=== PATIENT | male | born 1980 | race Hispanic/Latino ===

== ENCOUNTER 2022-02-17 17:51 | Emergency (ER) | payer OTHER, SELFPAY ==
[2022-02-17] MEDS ORDERED: Nicardipine/NS 25 MG/250 ML KIT IV ONE (18:36)
[2022-02-17] MEDS ORDERED: NA CHLORIDE 0.9% 1,000 ML ONE (18:36)
[2022-02-17 18:38] LABS: Absolute Lymphocytes (CBC) 2.8 K/uL (0.7-4.9); Hematocrit 43.7 % (39.6-49.0); Lymphocytes % 30.1 % (15.3-44.8); MPV 8.9 fL (7.6-11.3); RBC Red Blood Cell Count 5.28 M/uL (4.33-5.43)
[2022-02-17 18:41] LABS: Protime INR 1.04
--- NOTE | 2022-02-17 18:42 | RAD REPORT ---
EXAM DESCRIPTION: CT - Head Brain Wo Cont - 02/17/2022 6:20 pm CLINICAL HISTORY: SLURRED SPEECH Headache, drowsiness COMPARISON: No comparisons TECHNIQUE: All CT scans are performed using dose optimization technique as appropriate and may inclu de automated exposure control or mA/KV adjustment according to patient size. FINDINGS: 28 x 21 mm acute hemorrhage is present in the left thalamus. This is likely a hypertensive bleed.Small amount of blood is seen extending into the left frontal horn of lateral ventricle and th ird ventricle.No midline shift is seen. The paranasal sinuses and mastoids are clear. The calvarium is intact. IMPRESSION: 28 mm suspected hypertensive acute hemorrhage is present left thalamus. Small amount of hemorrhage is seen extending into the left lateral ventricle and third ventricle. The findings were discussed with Bala Mills on 02/17/2022 at 6:38 p.m. by telephone.
--- NOTE | 2022-02-17 18:50 | ER ---
Nurse's Notes [facility] Name: Kit Puente Age: 41 yrs Sex: Male : 1980 Arrival Date: 02/17/2022 Time: 17:52 Bed 17 Private MD: Diagnosis: Nontraumatic intracerebral hemorrhage, unspecified;Hypertensive heart disease without heart failure;Hyperglycemia, unspecified Presentation: 02/17 17:55 Chief complaint: Spouse and/or significant other states: "He was having a headache that jd3 started last night and got worse today. this morning he started having slurred speech ". Coronavirus screen: At this time, the client does not indicate any symptoms associated with coronavirus-19. Ebola Screen: No symptoms or risks identified at this time. Initial Sepsis Screen: Does the patient meet any 2 criteria? No. Patient's initial sepsis screen is negative. Does the patient have a suspected source of infection? No. Patient's initial sepsis screen is negative. Risk Assessment: Do you want to hurt yourself or someone else? Patient reports no desire to harm self or others. Onset of symptoms was February 16, 2022. 17:55 Method Of Arrival: Ambulatory jd3 17:55 Acuity: CATHERINE 2 jd3 17:59 Acuity: CATHERINE 2 ap3 19:13 Pre-hospital glucose is not applicable to this patient. ap3 19:56 An acute neurological deficit is present. bb Triage Assessment: 19:14 The onset of the patients symptoms was February 16, 2022 at 17:00. General: Appears in no ap3 apparent distress. Behavior is calm, cooperative. Stroke Activation: Symptom onset > 6 hours Physician: Stroke Attending; Name: ; Notified At: ; Arrived At: Physician: Chief Stroke Resident; Name: ; Notified At: ; Arrived At: Physician: Stroke Resident; Name: ; Notified At: ; Arrived At: Physician: ED Attending; Name: ; Notified At: ; Arrived At: Physician: ED Resident; Name: ; Notified At: ; Arrived At: Historical: - Allergies: 17:56 No Known Allergies; jd3 - Home Meds: 17:56 None [Active]; jd3 - PMHx: 17:56 None; jd3 - PSHx: 17:56 None; jd3 - Immunization history:: Adult Immunizations up to date, Client reports having NOT received the Covid vaccine. Flu vaccine is not up to date. - Social history:: Smoking status: Patient reports the use of cigarette tobacco products, denies chronic smoking, but will smoke occasionally. Screenin:13 Abuse screen: Denies threats or abuse. Nutritional screening: No deficits noted. ap3 Tuberculosis screening: No symptoms or risk factors identified. Assessment: 19:11 VAN Scoring: Arm Drift: Patients demonstrates NO arm weakness. Patient is VAN Negative. ap3 T-PA (Activase) Screening: Contraindications: Intracranial hemorrhage and its risk factor and suspicion of subarachnoid bleed: Yes. Pain: Denies pain. Neuro: Level of Consciousness is awake, alert, obeys commands, Oriented to person, place, time, situation, Speech is normal. Cardiovascular: Patient's skin is warm and dry. Respiratory: Airway is patent Respiratory effort is even, unlabored, Respiratory pattern is regular, symmetrical. 19:13 Patient has been NPO before screening. The patient is alert, and able to follow ap3 commands. The patient exhibits slurred or garbled speech. The patient is not exhibiting difficulty speaking. The patient does not exhibit difficulty understanding words. The patient is able to swallow own secretions with no drooling or need for suction. Patient tolerated one teaspoon of water. No drooling, immediate coughing, gurgling, or clearing of the throat was noted. The patient tolerated 90mL of water. No drooling, immediate coughing, gurgling, or clearing of the throat was noted. The patient passed the bedside swallow screening. Oral medications may be given as ordered. Contact Physician for further diet orders. Provider notified of bedside swallow screening results: Bala GUZMÁN. 19:15 General: Appears in no apparent distress. obese, Behavior is calm, cooperative. Pain: bb Denies pain. Neuro: Level of Consciousness is awake, alert, obeys commands, Oriented to person, place, time, situation. Cardiovascular: Capillary refill < 3 seconds Patient's skin is warm and dry. Rhythm is sinus tachycardia. Respiratory: Respiratory effort is even, unlabored, Respiratory pattern is regular. GI: No signs and/or symptoms were reported involving the gastrointestinal system. Derm: Skin is dry, Skin is normal, Skin temperature is warm. Musculoskeletal: Circulation, motion, and sensation intact. 19:50 Reassessment: report called to Macy DE LEON for [facility]. bb 20:01 Reassessment: [facility] at bedside for transport of pt to [facility] pt is A\\T\\O x 4, resp unlabored, IV sites intact, patent, cardene drip at 10 mg. Family at bedside. Vital Signs: 17:57 BP 238 / 127; Pulse 100; Resp 18 S; Temp 98.4(TE); Pulse Ox 100% on R/A; Weight 158.76 jd3 kg (R); Height 5 ft. 11 in. (180.34 cm) (R); Pain 0/10; 18:51 BP 226 / 114; Pulse 118; Pulse Ox 100% ; ap3 19:11 BP 197 / 97; Pulse 109; Pulse Ox 100% ; ap3 19:25 BP 188 / 80; Pulse 121; Resp 18; Pulse Ox 97% on R/A; bb 19:40 BP 159 / 80; Pulse 120; Resp 18 S; Pulse Ox 98% on R/A; bb 19:50 BP 151 / 79; Pulse 125; Resp 18 S; Pulse Ox 98% on R/A; bb 17:57 Body Mass Index 48.81 (158.76 kg, 180.34 cm) jd3 NIH Stroke Scale Scores: 18:25 NIHSS Score: 1 cp 19:11 NIHSS Score: 1 ap3 ED Course: 17:52 Patient arrived in ED. as 17:56 Triage completed. jd3 17:58 Arm band placed on. jd3 17:59 Amarilys Mooney, HALEY is Primary Nurse. ap3 18:01 Tino Jefferson MD is Attending Physician. kdr 18:03 Bala Mills PA is PHCP. cp 18:22 CT Head Brain wo Cont: slurred speech since yesterday In Process Unspecified. EDMS 18:48 initiated transfer to [facility]. bd 18:59 XRAY Chest (1 view) In Process Unspecified. EDMS 19:14 Patient has correct armband on for positive identification. Placed in gown. Bed in low ap3 position. Call light in reach. Side rails up X2. Adult w/ patient. desk monitor on. Pulse ox on. NIBP on. Door closed. Noise minimized. 19:30 administrative approval given by Kathe Christie/ patient has been accepted to [address] to the Neuro ICU/ Dr. Zepeda accepted the patient in transfer/ report to be called to [phone]. 19:56 No provider procedures requiring assistance completed. IV is patent, is intact, with bb fluids infusing freely. 20:01 Patient transferred, IV remains in place. bb Administered Medications: 18:51 Drug: Cardene (niCARdipine) 5 mg/hr Route: IV; Rate: calculated rate; Site: right wrist;ap3 20:02 Follow up: IV Status: Infusion continued upon transfer 18:51 Drug: NS 0.9% 1000 ml Route: IV; Rate: 1 bolus; Site: right wrist; ap3 20:01 Follow up: IV Status: Infusion continued upon transfer bb 18:58 Drug: Keppra (levETIRAcetam) 1000 mg Route: IV; Rate: calculated rate; Site: left hand; ap3 19:15 Follow up: IV Status: Completed infusion; IV Intake: 100ml ap3 Intake: 19:15 IV: 100ml; Total: 100ml. ap3 Outcome: 18:50 ER care complete, transfer ordered by MD. duarte 19:56 Transferred by helicopter to [facility], Transfer form completed. X-rays sent bb w/ patient. 19:56 Condition: stable 19:56 Instructed on the need for transfer. 20:02 Patient left the ED. brigida NIH Stroke Scale - NIH Stroke Score Date: 02/17/2022 Time: 18:25 Total Score = 1 1a. Level of Consciousness (LOC) - 0(Alert) 1b. Level of Consciousness (LOC) (Month \\T\\ Age) - 0(Both) 1c. LOC Commands (Open \\T\\ Closes Eyes/Media Supervisor) - 0(Both) 2. Best Gaze (Lateral Gaze Paresis) - 0(Normal) 3. Visual Field Loss - 0(No visual loss) 4. Facial Palsy - 0(Normal) 5a. Left Arm: Motor (10-second hold) - 0(No drift) 5b. Right Arm: Motor (10-second hold) - 0(No drift) 6a. Left Leg: Motor (5-second hold - always test supine) - 0(No drift) 6b. Right Leg: Motor (5-second hold - always test supine) - 0(No drift) 7. Limb Ataxia (finger/nose \\T\\ heel/james - test with eyes open) - 0(Absent) 8. Sensory Loss (pinprick arms/legs/face) - 0(Normal) 9. Best Language: Aphasia (description/naming/reading) - 1(Mild to moderate aphasia) 10. Dysarthria (speech clarity - read or repeat words) - 0(Normal) 11. Extinction and Inattention (visual/tactile/auditory/spatial/personal) - 0(No abnormality) Initials: gerald NIH Stroke Scale - NIH Stroke Score Date: 02/17/2022 Time: 19:11 Total Score = 1 1a. Level of Consciousness (LOC) - 0(Alert) 1b. Level of Consciousness (LOC) (Month \\T\\ Age) - 0(Both) 1c. LOC Commands (Open \\T\\ Closes Eyes/Media Supervisor) - 0(Both) 2. Best Gaze (Lateral Gaze Paresis) - 0(Normal) 3. Visual Field Loss - 0(No visual loss) 4. Facial Palsy - 0(Normal) 5a. Left Arm: Motor (10-second hold) - 0(No drift) 5b. Right Arm: Motor (10-second hold) - 0(No drift) 6a. Left Leg: Motor (5-second hold - always test supine) - 0(No drift) 6b. Right Leg: Motor (5-second hold - always test supine) - 0(No drift) 7. Limb Ataxia (finger/nose \\T\\ heel/james - test with eyes open) - 0(Absent) 8. Sensory Loss (pinprick arms/legs/face) - 0(Normal) 9. Best Language: Aphasia (description/naming/reading) - 1(Mild to moderate aphasia) 10. Dysarthria (speech clarity - read or repeat words) - 0(Normal) 11. Extinction and Inattention (visual/tactile/auditory/spatial/personal) - 0(No abnormality) Initials: ap3 Signatures: Dispatcher [employer] EDJoan Parr Kevin, MD MD kdr Martinez, Amelia as Ballard, Brenda RN RN bb Bala Mills PA PA cp Davies, Jonathon RN RN jd3 Amarilys Mooney RN RN ap3 Bri Pinon mw2 Corrections: (The following items were deleted from the chart) 18:02 17:55 Acuity: CATHERINE 3 jd3 jd3
--- NOTE | 2022-02-17 18:50 | EDPHYS ---
Physician Documentation [facility] Name: Kit Puente Age: 41 yrs Sex: Male : 1980 Arrival Date: 02/17/2022 Time: 17:52 Bed 17 Private MD: ED Physician Tino Jefferson HPI: 02/17 18:15 This 41 yrs old Male presents to ER via Ambulatory with complaints of Slurred cp Speech, Dizziness, High Blood Pressure. 18:15 The patient presents to the emergency department with a speech or higher order brain cp function problem, slurred speech. Onset: The symptoms/episode began/occurred yesterday, and became worse today. Associated signs and symptoms: Pertinent positives: headache, Pertinent negatives: altered mental status, fever, neck stiffness, seizure, syncope, visual field changes, weakness. Severity of symptoms: in the emergency department the symptoms are unchanged despite home interventions. Patient's baseline: Neuro: alert and fully oriented, Motor: no deficits, Ambulation: walks without assistance, Speech: normal. Current symptoms: dysphasia, headache, that is mild. Historical: - Allergies: 17:56 No Known Allergies; jd3 - Home Meds: 17:56 None [Active]; jd3 - PMHx: 17:56 None; jd3 - PSHx: 17:56 None; jd3 - Immunization history:: Adult Immunizations up to date, Client reports having NOT received the Covid vaccine. Flu vaccine is not up to date. - Social history:: Smoking status: Patient reports the use of cigarette tobacco products, denies chronic smoking, but will smoke occasionally. ROS: 18:20 Constitutional: Negative for body aches, chills, fever, poor PO intake. cp 18:20 Eyes: Negative for injury, pain, redness, and discharge. cp 18:20 Neck: Negative for pain with movement, pain at rest, stiffness. 18:20 Cardiovascular: Negative for chest pain, edema, palpitations. 18:20 Respiratory: Negative for cough, shortness of breath, wheezing. 18:20 Abdomen/GI: Negative for abdominal pain, nausea, vomiting, and diarrhea, constipation. 18:20 Skin: Negative for cellulitis, rash. 18:20 Neuro: Positive for headache, speech changes, Negative for altered mental status, weakness. 18:20 All other systems are negative. Exam: 18:25 Constitutional: The patient appears in no acute distress, alert, awake, cp non-diaphoretic, non-toxic, well developed, well nourished. 18:25 Head/Face: Normocephalic, atraumatic. cp 18:25 Eyes: Periorbital structures: appear normal, Pupils: equal, round, and reactive to light and accomodation, Extraocular movements: intact throughout, Conjunctiva: normal, no exudate, no injection, Sclera: no appreciated abnormality, Lids and lashes: appear normal, bilaterally. 18:25 ENT: External ear(s): are unremarkable, Nose: is normal, Mouth: Lips: moist, Oral mucosa: moist, Posterior pharynx: Airway: no evidence of obstruction, patent. 18:25 Neck: ROM/movement: is normal, is supple, without pain, no range of motions limitations, no nuchal rigidity. 18:25 Chest/axilla: Inspection: normal, Palpation: is normal, no crepitus, no tenderness. 18:25 Cardiovascular: Rate: tachycardic, Rhythm: regular, Heart sounds: murmur, not appreciated, Edema: is not appreciated, JVD: is not appreciated. 18:25 Respiratory: the patient does not display signs of respiratory distress, Respirations: normal, no use of accessory muscles, no retractions, labored breathing, is not present, Breath sounds: are clear throughout, no decreased breath sounds, no stridor, no wheezing. 18:25 Abdomen/GI: Inspection: abdomen appears normal, Palpation: abdomen is soft and non-tender, in all quadrants. 18:25 Back: pain, is absent, ROM is normal. 18:25 Neuro: Orientation: to person, place \\T\\ time. Mentation: is normal, Cerebellar function: Romberg testing is negative, normal finger to nose testing, heel to james testing is normal, Motor: moves all fours, strength is normal, Sensation: is normal. 18:50 ECG was reviewed by the Attending Physician. cp Vital Signs: 17:57 BP 238 / 127; Pulse 100; Resp 18 S; Temp 98.4(TE); Pulse Ox 100% on R/A; Weight 158.76 jd3 kg (R); Height 5 ft. 11 in. (180.34 cm) (R); Pain 0/10; 18:51 BP 226 / 114; Pulse 118; Pulse Ox 100% ; ap3 19:11 BP 197 / 97; Pulse 109; Pulse Ox 100% ; ap3 19:25 BP 188 / 80; Pulse 121; Resp 18; Pulse Ox 97% on R/A; bb 19:40 BP 159 / 80; Pulse 120; Resp 18 S; Pulse Ox 98% on R/A; bb 19:50 BP 151 / 79; Pulse 125; Resp 18 S; Pulse Ox 98% on R/A; bb 17:57 Body Mass Index 48.81 (158.76 kg, 180.34 cm) jd3 NIH Stroke Scale Scores: 18:25 NIHSS Score: 1 cp 19:11 NIHSS Score: 1 ap3 MDM: 18:10 Patient medically screened. 19:10 Physician consultation: was contacted at 19:06, regarding regarding transfer, to [facility]. patient's condition, accepting physician will be DR Lyon. 19:15 Data reviewed: vital signs, nurses notes, lab test result(s), EKG, radiologic studies, CT scan, I have discussed the patient's presentation/case with the attending Emergency Department Physician;. 04 18:09 Order name: Basic Metabolic Panel; Complete Time: 19:03 04/ 19:52 Interpretation: Normal except: K 3.4; GLUC 295; GFR 66. 04/ 18:09 Order name: CBC with Diff; Complete Time: 18:42 / 18:42 Interpretation: Reviewed. 02/17 18:09 Order name: LFT's; Complete Time: 19:03 02/17 19:52 Interpretation: Normal except: AST 59; GLOB 4.4; A/G 0.8. 04/ 18:09 Order name: Magnesium; Complete Time: 19:03 04/06 18:09 Order name: NT PRO-BNP; Complete Time: 19:03 04/ 18:09 Order name: PT-INR; Complete Time: 18:42 04/ 18:42 Interpretation: Reviewed. 02/17 18:09 Order name: CT Head Brain wo Cont: slurred speech since yesterday; Complete Time: 19:03 04 18:09 Order name: Troponin HS; Complete Time: 19:03 02/17 18:09 Order name: XRAY Chest (1 view); Complete Time: 19:13 cp 02/17 18:09 Order name: Ptt, Activated; Complete Time: 18:42 cp 04 18:42 Interpretation: Reviewed. cp 04 18:33 Order name: COVID-19 SARS RT PCR (Document "Date of Onset" if Symptomatic); Complete aa5 Time: 19:51 04 18:09 Order name: EKG; Complete Time: 18:10 cp 02/17 18:09 Order name: Cardiac monitoring; Complete Time: 18:36 cp 04 18:09 Order name: EKG - Nurse/Tech; Complete Time: 18:36 cp 04 18:09 Order name: IV Saline Lock; Complete Time: 18:36 cp 02/17 18:09 Order name: Labs collected and sent; Complete Time: 18:36 cp 02/17 18:09 Order name: O2 Per Protocol; Complete Time: 18:36 cp 02/17 18:09 Order name: O2 Sat Monitoring; Complete Time: 18:36 cp EC:50 Rate is 96 beats/min. Rhythm is regular. MN interval is normal. QRS interval is cp prolonged at 108 msec. QT interval is normal. Interpreted by me. Reviewed by me. Administered Medications: 18:51 Drug: Cardene (niCARdipine) 5 mg/hr Route: IV; Rate: calculated rate; Site: right wrist;ap3 20:02 Follow up: IV Status: Infusion continued upon transfer bb 18:51 Drug: NS 0.9% 1000 ml Route: IV; Rate: 1 bolus; Site: right wrist; ap3 20:01 Follow up: IV Status: Infusion continued upon transfer bb 18:58 Drug: Keppra (levETIRAcetam) 1000 mg Route: IV; Rate: calculated rate; Site: left hand; ap3 19:15 Follow up: IV Status: Completed infusion; IV Intake: 100ml ap3 Disposition: 02/18 07:26 Co-signature as Attending Physician, Tino Jefferson MD I agree with the assessment and kdr plan of care. Disposition Summary: 02/17/22 18:50 Transfer Ordered Reason: Higher level of care cp Condition: Serious cp Problem: new cp Symptoms: are unchanged cp Transfer Location: [facility](02/17/22 19:53) cp Accepting Physician: DR Lyon(02/17/22 20:02) bb Diagnosis - Nontraumatic intracerebral hemorrhage, unspecified cp - Hypertensive heart disease without heart failure cp - Hyperglycemia, unspecified cp Forms: - Medication Reconciliation Form cp - SBAR form cp NIH Stroke Scale - NIH Stroke Score Date: 02/17/2022 Time: 18:25 Total Score = 1 1a. Level of Consciousness (LOC) - 0(Alert) 1b. Level of Consciousness (LOC) (Month \\T\\ Age) - 0(Both) 1c. LOC Commands (Open \\T\\ Closes Eyes/Zoning Technician) - 0(Both) 2. Best Gaze (Lateral Gaze Paresis) - 0(Normal) 3. Visual Field Loss - 0(No visual loss) 4. Facial Palsy - 0(Normal) 5a. Left Arm: Motor (10-second hold) - 0(No drift) 5b. Right Arm: Motor (10-second hold) - 0(No drift) 6a. Left Leg: Motor (5-second hold - always test supine) - 0(No drift) 6b. Right Leg: Motor (5-second hold - always test supine) - 0(No drift) 7. Limb Ataxia (finger/nose \\T\\ heel/james - test with eyes open) - 0(Absent) 8. Sensory Loss (pinprick arms/legs/face) - 0(Normal) 9. Best Language: Aphasia (description/naming/reading) - 1(Mild to moderate aphasia) 10. Dysarthria (speech clarity - read or repeat words) - 0(Normal) 11. Extinction and Inattention (visual/tactile/auditory/spatial/personal) - 0(No abnormality) Initials: cp NIH Stroke Scale - NIH Stroke Score Date: 02/17/2022 Time: 19:11 Total Score = 1 1a. Level of Consciousness (LOC) - 0(Alert) 1b. Level of Consciousness (LOC) (Month \\T\\ Age) - 0(Both) 1c. LOC Commands (Open \\T\\ Closes Eyes/Zoning Technician) - 0(Both) 2. Best Gaze (Lateral Gaze Paresis) - 0(Normal) 3. Visual Field Loss - 0(No visual loss) 4. Facial Palsy - 0(Normal) 5a. Left Arm: Motor (10-second hold) - 0(No drift) 5b. Right Arm: Motor (10-second hold) - 0(No drift) 6a. Left Leg: Motor (5-second hold - always test supine) - 0(No drift) 6b. Right Leg: Motor (5-second hold - always test supine) - 0(No drift) 7. Limb Ataxia (finger/nose \\T\\ heel/james - test with eyes open) - 0(Absent) 8. Sensory Loss (pinprick arms/legs/face) - 0(Normal) 9. Best Language: Aphasia (description/naming/reading) - 1(Mild to moderate aphasia) 10. Dysarthria (speech clarity - read or repeat words) - 0(Normal) 11. Extinction and Inattention (visual/tactile/auditory/spatial/personal) - 0(No abnormality) Initials: ap3 Signatures: Dispatcher [employer] EDTino Morales MD MD kdr Ballard, Brenda RN RN bb Bala Mills PA PA cp Davies, Jonathon, RN RN jAmarilys Rueda RN RN ap3 Corrections: (The following items were deleted from the chart) 02/17 19:14 18:50 Doctor cp cp 19:53 18:50 [facility] cp cp 19:53 19:14 Doctor cp cp 20:02 19:53 DR Lyon cp bb
[2022-02-17 18:55] LABS: Albumin 3.5 g/dL (3.4-5.0); Bilirubin Direct 0.1 mg/dL (0-0.2); Bilirubin Total 0.6 mg/dL (0.2-1.0); Potassium 3.4 mmol/L (3.5-5.1); Protein, Total 7.9 g/dL (6.4-8.2); Troponin High Sensitivity 8.6 pg/mL (<58.9)
[2022-02-17] MEDS ORDERED: NA CHLORIDE 0.9% 100 ML IV ONE (18:56)
[2022-02-17] MEDS ORDERED: LEVETIRACETAM 500 MG/5 ML VIAL IV ONE (18:56)
--- NOTE | 2022-02-17 19:08 | RAD REPORT ---
EXAM DESCRIPTION: RAD - Chest Single View - 02/17/2022 6:57 pm CLINICAL HISTORY: htn Chest pain. COMPARISON: No comparisons FINDINGS: Portable technique limits examination quality. Mild interstitial pulmonary edema suspected. The heart is normal in size. No displaced fractures. IMPRESSION: Mild pulmonary edema.
[2022-02-18 03:57] VITALS: TEMP 98.4
[2022-02-18 04:03] VITALS: O2SAT 98
[2022-02-18 04:06] VITALS: BP 151/79
== END 2022-02-17 20:02 | disposition short-term general hospital (02) ==
LOC: ER 17:51
DX: I61.9 Nontraumatic intracerebral hemorrhage, unspecified (principal); I11.9 Hypertensive heart disease without heart failure; R73.9 Hyperglycemia, unspecified; R29.701 NIHSS score 1; F17.210 Nicotine dependence, cigarettes, uncomplicated; Z20.822 Contact with and (suspected) exposure to COVID-19
CPT/HCPCS: 36415; 70450; 71045; 80048; 80076; 83735; 83880; 84484; 85025; 85610; 85730; 93005; 99285; J1953; J7030; U0003

== ENCOUNTER 2022-02-20 21:27 | Emergency (ER) | payer SELFPAY ==
--- OUTSIDE RECORDS SUMMARY | 2022-02-20 21:30 | XMS REPORT | Continuity of Care Document ---
:1980 Author Organization [facility] t Address [address] [place] [address] Care Team Providers Name Role Phone BROOKLYNN TRISTAN Attending Clinician Unavailable AKUA TRISTAN Admitting Clinician Unavailable Problems This patient has no known problems. Allergies, Adverse Reactions, Alerts This patient has no known allergies or adverse reactions. Medications This patient has no known medications. Procedures This patient has no known procedures. Encounters Start End Encounter Admission Attending Care Care Encounter Source Date/Time Date/Time Type Type Clinicians Facility Department ID 2022-02-17 2022-02-20 Inpatient [facility], [facility] [id number] 21:00:00 14:40:00 BROOKLYNN alexander [facility] Results This patient has no known results.
[2022-02-20] MEDS ORDERED: cloNIDine HCL 0.1 MG TAB ONE (21:57)
--- NOTE | 2022-02-21 00:07 | EDPHYS ---
Physician Documentation [facility] Name: Kit Puente Age: 41 yrs Sex: Male : 1980 Arrival Date: 02/20/2022 Time: 21:29 Bed 6 Private MD: ED Physician Micheal Garsia HPI: 02/20 21:19 This 41 yrs old Male presents to ER via Ambulatory with complaints of High pm1 Blood Pressure. 21:19 The patient has elevated blood pressure and discovered this at home, with a home pm1 device. Onset: The symptoms/episode began/occurred today. Modifying factors: The symptoms are aggravated by unknown. Associated signs and symptoms: Pertinent negatives: chest pain, headache, nausea, vomiting. Severity of symptoms: in the emergency department the blood pressure is unchanged. The patient has been recently seen by a physician: with different complaint(s), Patient was recently discharged from [facility] from hemorrhagic stroke. Patient was discharged home with medications for new diagnoses of hypertension, diabetes, hyperlipidemia. Patient reports blood pressure was 150s systolic upon discharge. Today patient's blood pressure has been elevated in the 190s to 200 range, and he is afraid that it would cause him to have a stroke again. Patient without any other complaints besides elevated blood pressure. Historical: - Allergies: 21:40 No Known Allergies; ab2 - PMHx: 21:40 Stroke; Hypertensive disorder; Diabetes mellitus; Hypercholesterolemia; ab2 - Immunization history:: Adult Immunizations up to date. - Social history:: Smoking status: Patient denies any tobacco usage or history of. ROS: 21:19 Constitutional: Negative for fever, chills, and weight loss, Eyes: Negative for injury, pm1 pain, redness, and discharge, ENT: Negative for injury, pain, and discharge, Cardiovascular: Negative for chest pain, palpitations, and edema, Respiratory: Negative for shortness of breath, cough, wheezing, and pleuritic chest pain, Abdomen/GI: Negative for abdominal pain, nausea, vomiting, diarrhea, and constipation, Back: Negative for injury and pain, MS/Extremity: Negative for injury and deformity, Skin: Negative for injury, rash, and discoloration, Neuro: Negative for headache, weakness, numbness, tingling, and seizure. 21:19 All other systems are negative. Exam: 21:19 Constitutional: This is a well developed, well nourished patient who is awake, alert, pm1 and in no acute distress. Head/Face: Normocephalic, atraumatic. 21:19 Back: No spinal tenderness. No costovertebral tenderness. Full range of motion. Skin: Warm, dry with normal turgor. Normal color with no rashes, no lesions, and no evidence of cellulitis. MS/ Extremity: Pulses equal, no cyanosis. Neurovascular intact. Full, normal range of motion. 21:19 Eyes: Exam is negative for acute changes, Extraocular movements: no acute changes, Conjunctiva: no acute changes, no injection. 21:19 ENT: Exam is negative for acute changes, Mouth: no acute changes, Lips: normal, moist, Oral mucosa: normal, pink and intact, moist. 21:19 Cardiovascular: Exam negative for acute changes, Rate: normal, Rhythm: regular, Pulses: no pulse deficits are appreciated, Heart sounds: normal. 21:19 Respiratory: Exam negative for acute changes, respiratory distress, shortness of breath, Breath sounds: are clear throughout. 21:19 Abdomen/GI: Inspection: obese Palpation: abdomen is soft and non-tender, in all quadrants. 21:19 Neuro: Exam negative for acute changes, Orientation: is normal, Mentation: is normal, Motor: is normal, moves all fours. Vital Signs: 21:37 BP 190 / 117; Pulse 110; Resp 18; Temp 98.6(TE); Pulse Ox 99% on R/A; Weight 154.22 kg; ab2 Height 5 ft. 11 in. (180.34 cm); Pain 0/10; 22:00 BP 178 / 125; Pulse 103; Pulse Ox 100% on R/A; lg3 22:15 BP 168 / 111; Pulse 96; Pulse Ox 99% on R/A; lg3 22:30 BP 156 / 105; Pulse 100; Pulse Ox 99% on R/A; lg3 0410 00:06 BP 132 / 74; Pulse 83; Resp 18 S; Pulse Ox 99% on R/A; as6 02/20 21:37 Body Mass Index 47.42 (154.22 kg, 180.34 cm) ab2 MDM: 02/20 21:46 Patient medically screened. pm1 02/21 00:04 Data reviewed: vital signs. Data interpreted: Pulse oximetry: on room air is 99 %. pm1 Interpretation: normal. 132/74 blood pressure. 00:04 Counseling: I had a detailed discussion with the patient and/or guardian regarding: the pm1 historical points, exam findings, and any diagnostic results supporting the discharge/admit diagnosis, the need for outpatient follow up, a family practitioner, to return to the emergency department if symptoms worsen or persist or if there are any questions or concerns that arise at home, for blood pressure management. Administered Medications: 02/20 22:08 Drug: cloNIDine 0.2 mg Route: PO; lg3 22:11 Follow up: Response: No adverse reaction lg3 Disposition: 02/21 06:08 Co-signature as Attending Physician, Micheal Garsia DO I was immediately available on-site ms3 in the Emergency Department for consultation in the care of the patient.. Disposition Summary: 02/21/22 00:06 Discharge Ordered Location: Home pm1 Problem: new pm1 Symptoms: have improved pm1 Condition: Stable pm1 Diagnosis - Essential (primary) hypertension pm1 Followup: pm1 - With: Emergency Department - When: As needed - Reason: Worsening of condition Followup: pm1 - With: Private Physician - When: 2 - 3 days - Reason: Recheck today's complaints, Continuance of care, Re-evaluation by your physician Discharge Instructions: - Discharge Summary Sheet pm1 - Hypertension, Adult pm1 - How to Take Your Blood Pressure, [id number] pm1 - DASH Eating Plan pm1 - Managing Your Hypertension pm1 Forms: - Medication Reconciliation Form pm1 - Thank You Letter pm1 - Antibiotic Education pm1 - Prescription Opioid Use pm1 Prescriptions: - Hydrochlorothiazide 25 mg Oral Tablet - take 1 tablet by ORAL route once daily .; 30 tablet; Refills: 0, Product pm1 Selection Permitted Signatures: Cesar Holt NP CLINICAL DOCUMENTATION CONSULTANT pm1 Jannet Moore, HALEY RN lg3 Micheal Garsia DO DO ms3 Gama Lemons2
--- NOTE | 2022-02-21 00:07 | ER ---
Nurse's Notes [facility] Name: Kit Puente Age: 41 yrs Sex: Male : 1980 Arrival Date: 02/20/2022 Time: 21:29 Bed 6 Private MD: Diagnosis: Essential (primary) hypertension Presentation: 02/20 21:37 Chief complaint: Spouse and/or significant other states: "He was here Tuesday and had ab2 a stroke, you guys flew him to [facility] and he was released today. They said if his BP got high we needed to call 911, it was 205/110 at home, so we came here to get checked." Pt denies any symptoms. Coronavirus screen: Vaccine status: Patient reports being unvaccinated. Client denies travel out of the [place] in the last 14 days. At this time, the client does not indicate any symptoms associated with coronavirus-19. Ebola Screen: Patient negative for fever greater than or equal to 101.5 degrees Fahrenheit, and additional compatible Ebola Virus Disease symptoms Patient denies exposure to infectious person. Patient denies travel to an Ebola-affected area in the 21 days before illness onset. No symptoms or risks identified at this time. Initial Sepsis Screen: Does the patient meet any 2 criteria? No. Patient's initial sepsis screen is negative. Does the patient have a suspected source of infection? No. Patient's initial sepsis screen is negative. Risk Assessment: Do you want to hurt yourself or someone else? Patient reports no desire to harm self or others. Onset of symptoms is unknown. 21:37 Method Of Arrival: Ambulatory ab2 21:37 Acuity: CATHERINE 3 ab2 Triage Assessment: 21:42 General: Appears in no apparent distress. comfortable, Behavior is calm, cooperative, ab2 appropriate for age. Pain: Denies pain. Neuro: Level of Consciousness is awake, alert, obeys commands, Oriented to person, place, time, situation, Appropriate for age Dirt Bike Racer are equal bilaterally Moves all extremities. Gait is steady, Speech is normal. Cardiovascular: Denies chest pain, shortness of breath, Patient's skin is warm and dry. Respiratory: Airway is patent Respiratory effort is even, unlabored, Respiratory pattern is regular, symmetrical. GI: No deficits noted. No signs and/or symptoms were reported involving the gastrointestinal system. : No deficits noted. No signs and/or symptoms were reported regarding the genitourinary system. Derm: Skin is intact, Skin is pink, warm \\T\\ dry. Historical: - Allergies: 21:40 No Known Allergies; ab2 - PMHx: 21:40 Stroke; Hypertensive disorder; Diabetes mellitus; Hypercholesterolemia; ab2 - Immunization history:: Adult Immunizations up to date. - Social history:: Smoking status: Patient denies any tobacco usage or history of. Screenin:08 Abuse screen: Denies threats or abuse. Denies injuries from another. Nutritional lg3 screening: No deficits noted. Tuberculosis screening: No symptoms or risk factors identified. Fall Risk None identified. Assessment: 22:08 General: Appears in no apparent distress. comfortable, Behavior is calm, cooperative. lg3 Pain: Denies pain. Neuro: No deficits noted. Level of Consciousness is awake, alert, obeys commands, Oriented to person, place, time, situation. Cardiovascular: No deficits noted. Denies chest pain, shortness of breath, Capillary refill < 3 seconds Clubbing of nail beds is absent JVD is absent Patient's skin is warm and dry. Respiratory: No deficits noted. Airway is patent Trachea midline Respiratory effort is even, unlabored, Respiratory pattern is regular, symmetrical. GI: No deficits noted. No signs and/or symptoms were reported involving the gastrointestinal system. Abdomen is round non-distended. : No deficits noted. No signs and/or symptoms were reported regarding the genitourinary system. EENT: No deficits noted. No signs and/or symptoms were reported regarding the EENT system. Derm: No deficits noted. No signs and/or symptoms reported regarding the dermatologic system. Skin is intact, is healthy with good turgor, Skin is dry. Musculoskeletal: No deficits noted. No signs and/or symptoms reported regarding the musculoskeletal system. Circulation, motion, and sensation intact. Capillary refill < 3 seconds, Range of motion: intact in all extremities. Vital Signs: 21:37 BP 190 / 117; Pulse 110; Resp 18; Temp 98.6(TE); Pulse Ox 99% on R/A; Weight 154.22 kg; ab2 Height 5 ft. 11 in. (180.34 cm); Pain 0/10; 22:00 BP 178 / 125; Pulse 103; Pulse Ox 100% on R/A; lg3 22:15 BP 168 / 111; Pulse 96; Pulse Ox 99% on R/A; lg3 22:30 BP 156 / 105; Pulse 100; Pulse Ox 99% on R/A; lg3 04 00:06 BP 132 / 74; Pulse 83; Resp 18 S; Pulse Ox 99% on R/A; as6 02/20 21:37 Body Mass Index 47.42 (154.22 kg, 180.34 cm) ab2 ED Course: 02/20 21:29 Patient arrived in ED. kz 21:34 Cesar Holt NP is PHCP. pm1 21:34 Micheal Garsia DO is Attending Physician. pm1 21:40 Triage completed. ab2 21:42 Arm band placed on left wrist. ab2 21:43 Star De La Cruz, RN is Primary Nurse. as6 22:08 Patient has correct armband on for positive identification. Bed in low position. Call lg3 light in reach. Side rails up X 1. Pulse ox on. NIBP on. Door closed. Noise minimized. Warm blanket given. 04 00:11 No provider procedures requiring assistance completed. Patient did not have IV access as6 during this emergency room visit. Administered Medications: 02/20 22:08 Drug: cloNIDine 0.2 mg Route: PO; lg3 22:11 Follow up: Response: No adverse reaction lg3 Outcome: 02/21 00:06 Discharge ordered by MD. pm1 00:11 Discharged to home ambulatory, with family. as6 00:11 Condition: stable 00:11 Discharge instructions given to patient, family, Instructed on discharge instructions, follow up and referral plans. medication usage, Demonstrated understanding of instructions, follow-up care, medications, Prescriptions given X 1. 00:11 Patient left the ED. as6 Signatures: Cesar Holt NP AUTOMOTIVE PAINTER pm1 Jannet Moore RN RN lg3 Star De La Cruz, HALEY RN as6 Gama Lemons ab2 Krystle Austin k
[2022-02-21 01:59] VITALS: TEMP 98.6
[2022-02-21 02:02] VITALS: O2SAT 99
[2022-02-21 02:05] VITALS: BP 132/74
== END 2022-02-21 00:11 | disposition home or self-care (01) ==
LOC: ER 21:27
DX: I10 Essential (primary) hypertension (principal); E11.9 Type 2 diabetes mellitus without complications; E78.00 Pure hypercholesterolemia, unspecified; Z86.73 Personal history of transient ischemic attack (TIA), and cerebral infarction without residual deficits
CPT/HCPCS: 99283